=== PATIENT | male | born 1990 | race Caucasian/White ===

== ENCOUNTER 2024-01-10 07:43 | Emergency (ER) | payer MEDICAID ==
[~2024-01-10] VITALS: Ht 182.9 cm; Wt 75.0 kg
[2024-01-10 07:46] VITALS: O2SAT 99
[2024-01-10] MEDS: KETOROLAC 60MG/2ML VIAL IM ONE (09:21)
[2024-01-10 09:49] VITALS: BP 132/78; PULSE 80; RESP 16; TEMP 98.8
== END 2024-01-10 09:50 | disposition home or self-care (01) ==
LOC: ER 07:56
DX: S93.402A Sprain of unspecified ligament of left ankle, initial encounter (principal); X58.XXXA Exposure to other specified factors, initial encounter; Y93.66 Activity, soccer; Y92.89 Other specified places as the place of occurrence of the external cause; Y99.8 Other external cause status
CPT/HCPCS: 73610; 96372; 99283; J1885; Z7610 ×2

== ENCOUNTER 2025-09-12 19:00 | Emergency (ER) | payer MEDICAID ==
[~2025-09-12] VITALS: Ht 177.8 cm; Wt 77.0 kg
[2025-09-12 19:04] VITALS: O2SAT 99
[2025-09-12 21:58] LABS: BASOPHILS % 0.9 % (0.0-2.0); EOSINOPHILS % 11.2 % (0.0-5.0); HEMATOCRIT. 46.5 % (42.0-52.0); HEMOGLOBIN. 15.6 g/dL (14.0-18.0); LYMPHOCYTES % 27.3 % (20.0-50.0); MEAN PLATELET VOLUME 10.6 fl (7.4-10.4); MONOCYTES % 8.4 % (2.0-8.0); NEUTROPHILS % 52.2 % (40.0-76.0); PLATELET 146 x1000/uL (130-400); RED BLOOD CELL COUNT 5.60 mill/uL (4.7-6.1); RED CELL DISTRIBUTION WIDTH 13.5 % (11.6-14.6)
[2025-09-12 22:11] LABS: CREATININE 1.1 mg/dL (0.6-1.3); UREA NITROGEN BLOOD 5 mg/dL (9-23)
[2025-09-12 22:12] LABS: TROPONIN I HIGH SENSITIVITY < 4 ng/L (3.0-53)
[2025-09-12 22:34] VITALS: BP 121/85; PULSE 76; RESP 20; TEMP 36.6; O2SAT 97
== END 2025-09-12 22:35 | disposition home or self-care (01) ==
LOC: ER 19:00
DX: R06.02 Shortness of breath (principal)
CPT/HCPCS: 36415; 71045; 80048; 83880; 84484; 85025; 85379; 93005; 99285